=== PATIENT | male | born 1980 | race Caucasian/White ===

== ENCOUNTER 2023-12-17 08:43 | Emergency (ER) | payer OTHER ==
[~2023-12-17] VITALS: Ht 193 cm; Wt 158.8 kg
[2023-12-17] MEDS ORDERED: QUET200 PO (09:08)
== END 2023-12-17 09:11 | disposition home or self-care (01) ==
LOC: ER 08:43
DX: Z76.0 Encounter for issue of repeat prescription (principal); F20.9 Schizophrenia, unspecified; Z79.899 Other long term (current) drug therapy
CPT/HCPCS: 99281

== ENCOUNTER 2024-01-27 13:45 | Emergency (ER) | payer MEDICARE, OTHER ==
[~2024-01-27] VITALS: Ht 193 cm; Wt 158.8 kg
[~2024-01-27 13:45] MED LIST: QUET200 PO
[2024-01-27] MEDS ORDERED: QUET200 PO (13:51)
== END 2024-01-27 13:53 | disposition home or self-care (01) ==
LOC: ER 13:45
DX: Z76.0 Encounter for issue of repeat prescription (principal); F20.9 Schizophrenia, unspecified; F17.200 Nicotine dependence, unspecified, uncomplicated; Z79.899 Other long term (current) drug therapy
CPT/HCPCS: 99281

== ENCOUNTER 2024-03-26 13:47 | Emergency (ER) | payer MEDICARE, OTHER ==
[~2024-03-26] VITALS: Ht 193 cm; Wt 158.8 kg
[2024-03-26] MEDS ORDERED: QUET200 PO (14:27)
== END 2024-03-26 14:29 | disposition home or self-care (01) ==
LOC: ER 13:47
DX: Z76.0 Encounter for issue of repeat prescription (principal); Z79.899 Other long term (current) drug therapy
CPT/HCPCS: 99281

== ENCOUNTER 2024-05-23 14:24 | Emergency (ER) | payer MEDICARE, OTHER ==
[~2024-05-23] VITALS: Ht 195.6 cm; Wt 117.9 kg
== END 2024-05-23 14:36 | disposition home or self-care (01) ==
LOC: ER 14:24
DX: Z76.0 Encounter for issue of repeat prescription (principal); Z79.899 Other long term (current) drug therapy
CPT/HCPCS: 99281

== ENCOUNTER 2024-09-17 10:25 | Emergency (ER) | payer MEDICARE, OTHER ==
[~2024-09-17] VITALS: Ht 190.5 cm; Wt 154.2 kg
[2024-09-17 11:04] LABS: INFLUENZA A AG Positive (NEGATIVE)
[2024-09-17 11:05] LABS: CORONAVIRUS COVID-19 AG Negative (NEGATIVE); INFLUENZA B AG Negative (NEGATIVE)
[2024-09-17] MEDS ORDERED: OSEL75CA PO (11:43)
[2024-09-17] MEDS ORDERED: PROM25 PO (11:43)
== END 2024-09-17 11:47 | disposition home or self-care (01) ==
LOC: ER 10:25
PROVIDERS: Emergency Medicine
DX: J10.1 Influenza due to other identified influenza virus with other respiratory manifestations (principal); Z79.899 Other long term (current) drug therapy
CPT/HCPCS: 87428-QW; 99283

== ENCOUNTER 2025-02-03 05:51 | Emergency (ER) | payer MEDICARE, OTHER ==
[~2025-02-03] VITALS: Ht 193 cm; Wt 149.7 kg
[~2025-02-03 05:51] MED LIST changes: +OSEL75CA PO; +PROM25 PO
[2025-02-03 06:22] LABS: Source, Urine Clean Catch
[2025-02-03 06:26] LABS: Bilirubin, Urine Neg (Neg); Color, Urine Yellow (P-Yellow); Glucose Qualitative, Urine 4+ (Neg); Ketones, Urine Neg (Neg); Leukocyte Esterase, Urine 3+ (Neg); Protein, Urine 3+ (Neg); Specific Gravity, Urine 1.020 (1.003-1.022); Urobilinogen, Urine NORM (Normal)
[2025-02-03 06:34] LABS: Red Blood Cells, Urine 50-100 /hpf (0-2); White Blood Cells, Urine 50-100 /hpf (0-5)
== END 2025-02-03 07:14 | disposition left against medical advice (07) ==
LOC: ER 05:51
PROVIDERS: Emergency Medicine
DX: R39.15 Urgency of urination (principal); R30.9 Painful micturition, unspecified; Z53.21 Procedure and treatment not carried out due to patient leaving prior to being seen by health care provider
CPT/HCPCS: 81001; 87077; 87086; 87186

== ENCOUNTER → 2025-04-03 | Outpatient (CLI) | payer MEDICARE, OTHER | LOC: LAB 07:45 → LAB SHORT 07:45 | DX: L98.0 Pyogenic granuloma (principal); K13.4 Granuloma and granuloma-like lesions of oral mucosa | CPT/HCPCS: 88305 ==